=== PATIENT | male | born 1995 ===

== ENCOUNTER 2022-04-04 07:47 | Inpatient (IN) | payer MEDICAID, SELFPAY ==
[2022-04-04] VITALS (25 sets, daily range): BP systolic 52–175; BP diastolic 15–103; PULSE 77–138; RESP 16–27; TEMP 30–36.5; O2SAT 86–100; BMI 26.6
--- NOTE | 2022-04-04 | ECG_ITS ---
Test Reason : ST ELEVATION Blood Pressure : / mmHG Vent. Rate : 077 BPM Atrial Rate : 077 BPM P-R Int : 146 ms QRS Dur : 082 ms QT Int : 386 ms P-R-T Axes : 058 019 040 degrees QTc Int : 436 ms Normal sinus rhythm Septal infarct (cited on or before 04-APR-2022) Abnormal ECG When compared with ECG of 04-APR-2022 19:45, No significant change was found Referred By: Marta Barton Electronically Signed By:LUBNA HAMILTON
--- NOTE | ~2022-04-04 | CT_ITS ---
EXAMINATION: CT ANGIOGRAM OF THE CHEST WITH AND WITHOUT CONTRAST (CT PULMONARY ANGIOGRAM FOR PE) CLINICAL INFORMATION: Reason for Exam hypoxia/cardiogenic shock COMPARISON: Chest radiograph earlier today TECHNIQUE: Prior to contrast administration, noncontrast localization images were obtained. Subsequently, multidetector volumetric imaging was performed from the thoracic inlet to below the diaphragms following the administration of 75 mL Omnipaque 350 intravenous contrast. No contrast reaction reported Sagittal, coronal, and MIP oblique sagittal reformatted images were obtained on the CT workstation, uploaded to PACS, and reviewed. This CT examination was performed using dose optimization techniques as appropriate, variously including the following: *Automated exposure control *Adjustment of mA and/or kV according to patient size (this includes techniques or standardized protocols for targeted exams where dose is matched to indication/reason for exam; i.e. extremities or head) *Use of iterative reconstruction technique Total exam dose-length product 529 mGy-cm FINDINGS: QUALITY OF STUDY/CONTRAST BOLUS: Satisfactory. PULMONARY ARTERIES: 3 small pulmonary emboli are noted in the right lower lobe. THORACIC AORTA: No aneurysm or dissection. LUNG: There is near complete consolidation/collapse of the left lung with only a tiny amount of aerated lung in the upper lobe and a moderate amount in the lower lobe. There is shift of the mediastinum to the left associated with this volume loss. This is a new finding when compared to the chest radiograph from 1:09 PM today In the right lung, there is diffuse groundglass change with multiple focal rounded ill-defined opacities, the largest measuring about 1.5 cm (see right upper lobe 7:117). Right basilar atelectasis is present. PLEURA: No pleural effusion or pneumothorax. MEDIASTINUM: There is mild cardiac enlargement. ET tube present with its tip 1.4 cm above the anna marie. An NG tube has its tip in the stomach. No pericardial effusion. No hilar or mediastinal lymphadenopathy. No evidence of septal bowing or right heart strain. CHEST WALL/AXILLA: No axillary or internal mammary lymphadenopathy. OSSEOUS STRUCTURES: No acute or suspicious osseous abnormality. UPPER ABDOMEN: Unremarkable. No reflux of contrast into the hepatic veins to suggest elevated right heart pressures. CT/CT angio chest PE protocol IMPRESSION: 1. 3 small pulmonary emboli in the right lower lobe. No evidence of right heart failure. 2. Near complete consolidation/collapse of the left lung with shift of the mediastinum to the left. 3. Diffuse groundglass changes in the right lung with multiple focal ill-defined opacities. Findings are nonspecific, but most likely related to infectious etiology. VTE: positive. This critical result was discussed with LESLIE Barton at 7:40 PM on the evening of the exam and it was ascertained that the content and urgency of the report was understood at the time of direct communication.
--- NOTE | ~2022-04-04 | XR_ITS ---
EXAMINATION: XR CHEST CLINICAL INFORMATION: Check endotracheal tube placement COMPARISON: Previous chest x-ray from earlier the same day TECHNIQUE: Frontal view of the chest was obtained. FINDINGS: The cardiac and mediastinal contours are stable. There is an endotracheal tube with tip 3 cm above the anna marie. There is a nasogastric tube with tip projecting over the stomach. There may be bilateral perihilar airspace disease. The lungs are otherwise clear. There is no pleural effusion or pneumothorax. No acute bone abnormality. XR/XR chest 1V IMPRESSION: Satisfactory position of endotracheal and nasogastric tubes.
--- NOTE | ~2022-04-04 | XR_ITS ---
EXAMINATION: XR CHEST CLINICAL INFORMATION: Triple-lumen catheter COMPARISON: Chest radiograph earlier today at 1:09 PM TECHNIQUE: Frontal view of the chest was obtained. FINDINGS: Since the prior study there has been placement of a right IJ catheter with tip in the distal SVC. No pneumothorax. ET tube again noted 3.3 cm above the anna marie. NG tube with tip in stomach. Compared to the prior CT scan is probably been improvement in appearances with better aeration of the left lung. The right lung is clear. XR/XR chest 1V IMPRESSION: Right IJ catheter in good position with tip in SVC. Other findings as described above. No acute intrathoracic disease.
--- NOTE | ~2022-04-04 | CT_ITS ---
EXAMINATION: CT HEAD WITHOUT CONTRAST CLINICAL INFORMATION: Altered mental status COMPARISON: None TECHNIQUE: Imaging was performed from the skull base to vertex without intravenous administration of contrast. This CT examination was performed using dose optimization techniques as appropriate, variously including the following: *Automated exposure control *Adjustment of mA and/or kV according to patient size (this includes techniques or standardized protocols for targeted exams where dose is matched to indication/reason for exam; i.e. extremities or head) *Use of iterative reconstruction technique Total exam dose length product: 699 mGy-cm FINDINGS: Abnormal heterogeneous attenuation in the cerebellum primarily in the midline and in the left cerebellar hemisphere with effacement of the fourth ventricle, prepontine and CP angle cisterns and obstructive hydrocephalus with dilation of the third and lateral ventricles and effacement of sulci as well as the basilar cisterns. There is mild periventricular hypoattenuation about the atria/occipital horn suggesting mild transependymal flow of CSF. Small curvilinear high density focus in the ventral left aspect of the cerebellum on series 2 image 13, possibly a small amount of hemorrhage. Some downward herniation of the cerebellar tonsils through the foramen magnum that appears to efface the CSF space. No other intra or extra-axial fluid collection, hemorrhage, or mass. Pat-white matter differentiation appears maintained. No significant volume loss. No calvarial fracture or soft tissue abnormality. The mastoid air cells and visualized portions of the paranasal sinuses are well aerated. CT/CT head/brain wo IV con IMPRESSION: 1. Findings highly suspicious for infiltrative mass in the posterior fossa/cerebellum primarily in the midline and in the left cerebellar hemisphere with resultant effacement of the fourth ventricle, basilar cisterns, and obstructive hydrocephalus with mild transependymal CSF flow. Recommendation for emergent neurosurgical consultation. 2. Small curvilinear high density focus in the ventral left aspect of the cerebellum, possibly a small amount of hemorrhage. This critical result was discussed with Marat Briceño NP at 7:21 PM on 08/03/2021 and it was ascertained that the content and urgency of the report was understood at the time of direct communication.
--- NOTE | ~2022-04-04 | XR_ITS ---
EXAMINATION: XR CHEST CLINICAL INFORMATION: Endotracheal tube position. COMPARISON: None TECHNIQUE: Frontal view of the chest was obtained. FINDINGS: Support devices: Endotracheal tube is seen at the level the anna marie pointing into the right mainstem bronchus. No significant abnormality is noted involving the heart, lungs, mediastinum, bony thorax or soft tissues. XR/XR chest 1V IMPRESSION: 1. Endotracheal tube at the level the anna marie pointing into the right mainstem bronchus. Readjustment is recommended. 2. No acute cardiopulmonary process.
--- NOTE | 2022-04-04 07:56 | ED.OVERDOSE ---
HPI - Overdose General Chief Complaint: Overdose Stated Complaint: FOUND SEMI CONS IN CAR,NARCAN GIVEN W/GOOD RESULTS Source: EMS Mode of arrival: EMS Limitations: no limitations History of Present Illness HPI Narrative: This is a 26 years old male brought in by the ambulance after opioid overdose, he was found in the car obtunded he was given 6 mg of Narcan nasally he is awake and alert now complaint: accidental overdose Onset (ago): hour(s) (1) Timing confirmed by: other Context: Accidental Overdose: wanted to get high Treatments Prior to Arrival: other (narcan ) Related Data Home Medications Medication Instructions Recorded Confirmed No Known Home Meds 04/04/22 04/04/22 Allergies Allergy/AdvReac Type Severity Reaction Status Date / Time Unable to Assess Allergy Verified 04/04/22 08:00 Review of Systems Constitutional: Constitutional: Reports no additional constitutional complaints ENT: Reports system reviewed and no additional complaints, except as documented Cardiovascular: Cardiovascular: Reports no additional cardiovascular complaints Gastrointestinal: Gastrointestinal: Reports no additional gastrointestinal complaints Neurologic: Reports system reviewed and no additional complaints, except as documented [facility] Past Medical History [facility] Narrative: opiate abuse Social History Social History Household Members: Unknown / Unable to assess Housing: Unknown / Unable to assess Unable to assess alcohol history related to: Unable to respond Patient Tobacco Use Status: Refuse Tobacco use screen Use of substances other than those prescribed or required for medical reasons: Unable to respond Advance Directives: No Advance Directives Information Provided: No Physical Exam Vital Signs: Vital Signs: Last Vital Signs Temp 97.7 F 04/04/22 15:30 Pulse 138 H 04/04/22 15:30 Resp 18 04/04/22 15:30 BP 166/103 H 04/04/22 15:30 Pulse Ox 96 04/04/22 15:30 O2 Del Method 04/04/22 15:30 O2 Flow Rate 40 04/04/22 13:54 FiO2 40 04/04/22 15:30 BMI result Body Mass Index 26.6 Const: General: cooperative HEENT: Head: Yes normal to inspection General nose exam: Normal external nose present Mouth: Normal oral and palatal mucosa present Neck: Neck: Yes normal visual inspection and Yes full ROM Chest: Chest palpation & inspection: normal inspection of the chest Resp: Effort & Inspection: normal respiratory effort Auscultation: clear to auscultation bilaterally Cardio: Jugular venous distension: no JVD Rate: regular rate GI: Inspection: Yes normal to inspection Palpation (GI): Soft to palpation, not firm, nontender and no guarding Auscultation: normal bowel sounds Skin: General skin exam: no rashes or lesions noted, elasticity normal and turgor normal Course Reevaluation(s) Reevaluation #1: Patient became more obtunded, but not apneic, his respiration rate was normal is sat was normal. Suction mouth we forund on secretion and multiple bags of drugs, because unbale to protect airway and obtunded decision to intubate,He was intubated with RSI ketamine/sux Time: 12:51 Reevaluation #2: Dr. Camarillo is at bedside now,hemodinamic OK Medications Administered Generic Name Dose Route Start Last Admin Trade Name Freq PRN Reason Stop Dose Admin Famotidine 20 mg 04/04/22 13:00 04/04/22 13:20 Famotidine/Pf 20 Mg/2 Ml Vial IVPUSH 20 mg BID GOLDY Administration Dextrose/Lactated Ringer's 1,000 mls @ 100 mls/hr 04/04/22 13:00 04/04/22 13:48 D5lr IVCONT 100 mls/hr .Q10H GOLDY Administration Discontinued Medications Generic Name Dose Route Start Last Admin Trade Name Freq PRN Reason Stop Dose Admin Fentanyl 100 mcg 04/04/22 12:00 04/04/22 12:05 Fentanyl Citrate/Pf 100 Mcg/2 Ml Vial IVPUSH 04/04/22 12:01 100 mcg ONCE ONE Administration Protocol Sodium Chloride 1,000 mls @ 999 mls/hr 04/04/22 10:15 04/04/22 12:52 Ns IVCONT 04/04/22 11:15 Infused .Q1H1M GOLDY Infusion Ketamine HCl 100 mg 04/04/22 11:49 04/04/22 11:50 Ketamine Hcl/Ns 100 Mg/10 Ml Syringe IVPUSH 04/04/22 11:50 100 mg STAT STA Administration Lidocaine HCl 5 ml 04/04/22 11:04 04/04/22 11:35 Lidocaine Hcl 1 % Mpf 5 Ml Vial INFILTRATI 04/04/22 11:05 5 ml ONCE ONE Administration Ondansetron HCl 4 mg 04/04/22 08:00 04/04/22 08:31 Ondansetron Odt 4 Mg Tab.Rapdis TRANSLINGU 04/04/22 08:01 4 mg ONCE ONE Administration Procedures EJ/Peripheral Line Arm R: Time Out Performed: Yes Skin Cleansed in Sterile Fashion: Yes IV Secured and Dressing Applied: Yes Patient Tolerated Procedure: well Additional Comments: under US cannulated rt brachial vein Intubation Time out performed: Yes sedative: Ketamine paralytic: Succinylcholine Laryngoscope: other (video laryngoscopy) ET Tube Size: 7.5 ET Tube Uncuffed: Yes Tube Secured Depth (cm): 33 Tube Secured Location: teeth Tube Placement Confirmation: equal breath sounds bilaterally Patient Tolerated Procedure: well Intubation Complications: none Medical Decision Making Lab Data MDM Lab Attestation statement: I reviewed the patient's lab results. Result Diagrams: 04/04/22 10:49 04/04/22 12:55 Labs: Lab Results 04/04/22 04/04/22 04/04/22 Range/Units 10:49 11:29 11:33 WBC 20.9 H (4.8-10.8) X10*3/uL RBC 5.69 (4.60-5.80) X10*6/uL Hgb 18.2 H (14.0-18.0) g/dl Hct 51.9 (42.0-52.0) % MCV 91.2 (80.0-98.0) fL MCH 32.0 (27.0-33.0) pg MCHC 35.1 (31.0-36.0) g/dl RDW 11.9 (11.0-16.0) % Plt Count 216 (160-400) X10*3/uL MPV 10.7 (9.4-12.4) fL Immature Gran % (Auto) 0.6 H (0.0-0.4) % Neut % (Auto) 90.7 H (45-73) % Lymph % (Auto) 4.6 L (20-40) % [place] % (Auto) 4.0 (2-11) % Eos % (Auto) 0.0 (0-4) % Baso % (Auto) 0.1 (0-2) % Lymph # (Auto) 1.0 L (1.2-4.9) X10*3/uL [place] # (Auto) 0.8 (0.1-1.2) X10*3/uL Eos # (Auto) 0.0 (0.0-0.4) X10*3/uL Baso # (Auto) 0.0 (0.0-0.2) X10*3/uL Abs Immat Gran (auto) 0.13 H (0.00-0.03) X10*3/uL Absolute Neuts (auto) 18.9 H (2.0-8.3) x10*3/uL Absolute Nucleated RBC 0.000 (0.0-0.012) X10*3/uL Nucleated RBC % (auto) 0.0 (0.0-0.2) /100WBC Smear Tech's Comments VERIFIED VBG pH 7.41 (7.32-7.43) VBG pCO2 32 mmHg VBG pO2 63 mmHg VBG HCO3 20 L (22-26) mmol/L VBG O2 Saturation 94.0 % VBG Base Excess -2.6 mmol/L POC Glucose 124 H (60-115) mg/dL Independent Interpretation I performed an independent interpretation of an: Plain X-Ray Interpretation: CLINICAL INFORMATION: Check endotracheal tube placement COMPARISON: Previous chest x-ray from earlier the same day TECHNIQUE: Frontal view of the chest was obtained. FINDINGS: The cardiac and mediastinal contours are stable. There is an endotracheal tube with tip 3 cm above the anna marie. There is a nasogastric tube with tip projecting over the stomach. There may be bilateral perihilar airspace disease. The lungs are otherwise clear. There is no pleural effusion or pneumothorax. No acute bone abnormality. XR/XR chest 1V IMPRESSION: Satisfactory position of endotracheal and nasogastric tubes. ? Dictated By: Birgit Peter MD Independent Historian Clinical information obtained from an independent historian. History obtained from or confirmed by: EMS Critical Care Time Critical Care Time Critical Care Time: Yes Total Critical Care Time: 60 Attestation: taking care of the pt ,multiple reexamination Discharge Plan Discharge Clinical Impression: Drug overdose, Respiratory failure Patient Disposition: Admitted As Inpatient
--- NOTE | 2022-04-04 08:12 | PC.NURSE ---
pt alert to self, not able to respond appropriately to triage questions. pt changed over and belongings searched by security. small plastic bag with white substance found on his person and fifty-two dollars in vaugh[place]. pt was given 8 mg narcan by ems. belongings inventory done by supervisor powdered metal, belongings secured in locker 7 by security personnel.
[2022-04-04] MEDS: Ondansetron ODT 4 MG TAB.RAPDIS TRANSLINGU (08:31)
--- NOTE | 2022-04-04 09:51 | HO.SUDE ---
Attempted to meet with pt to complete SUDE. Pt unable to have meaningful conversation due to somnolence. Pt was able to tell me that he used 2 bags, IN, this morning and has had overdoses in the past. Pt declined ATS at this time. Will follow up when more awake.
[2022-04-04] MEDS: 0.9 % Sodium Chloride 1,000 ML 999 ML IVCONT (10:51)
[2022-04-04 10:58] LABS: Basophils Percent Auto 0.1 % (0-2); Hematocrit 51.9 % (42.0-52.0); Hemoglobin 18.2 g/dl (14.0-18.0); Imm Gran Abs Auto 0.13 X10*3/uL (0.00-0.03); Imm Gran Pct Auto 0.6 % (0.0-0.4); Lymphocytes Percent Auto 4.6 % (20-40); MANUAL DIFF FLAG SCAN; Mean Corpuscular Volume 91.2 fL (80.0-98.0); Mean Platelet Volume 10.7 fL (9.4-12.4); Monocytes Absolute Auto 0.8 X10*3/uL (0.1-1.2); Neutrophils Absolute Auto 18.9 x10*3/uL (2.0-8.3); Neutrophils Percent Auto 90.7 % (45-73); Platelet Count 216 X10*3/uL (160-400); Red Blood Count 5.69 X10*6/uL (4.60-5.80); Red Cell Distribution Width 11.9 % (11.0-16.0); SCAN SMEAR FLAG 1; White Blood Count 20.9 X10*3/uL (4.8-10.8)
[2022-04-04 10:59] LABS: Mean Corpuscular HGB Conc 35.1 g/dl (31.0-36.0)
[2022-04-04 11:32] LABS: Glucose, Whole Blood 124 mg/dL (60-115)
--- NOTE | 2022-04-04 11:32 | ECG_ITS ---
Test Reason : OVERDOSE Blood Pressure : / mmHG Vent. Rate : 111 BPM Atrial Rate : 111 BPM P-R Int : 136 ms QRS Dur : 070 ms QT Int : 302 ms P-R-T Axes : 049 013 028 degrees QTc Int : 410 ms Sinus tachycardia Septal infarct , age undetermined Abnormal ECG No previous ECGs available Referred By: Miles Perez Electronically Signed By:LUBNA HAMILTON
[2022-04-04] MEDS: Lidocaine HCl 1 % MPF 5 ML VIAL INFILTRATI (11:35)
[2022-04-04 11:38] LABS: Venous Blood Gas Refer to POC result
[2022-04-04 11:39] LABS: SLIDE REVIEW VERIFIED
[2022-04-04 11:39] LABS: VBG Base Excess -2.6 mmol/L; VBG HCO3 20 mmol/L (22-26); VBG pCO2 32 mmHg; VBG pH 7.41 (7.32-7.43); VBG pO2 63 mmHg
[2022-04-04] MEDS: Ketamine HCl/NS 100 MG/10 ML SYRINGE IVPUSH (11:50)
[2022-04-04] MEDS: fentaNYL citrate/PF 100 MCG/2 ML VIAL IVPUSH (12:05)
--- NOTE | 2022-04-04 12:51 | PM.CCHP ---
History of Present Illness Date of Service: 04/04/22 Attending physician on admission: Mai Hensley Chief Complaint: Altered mental mental status 26-year-old male found unresponsive in his car given 6 mg of Narcan in the field and he did awaken briefly brought to the emergency room where it note they noticed that he had stertorous breathing and upon oral suctioning they began to retrieve backs of drugs from his mouth and pharynx and as he lost consciousness and and clearly was unable to protect his airway and because he was obstructed intubation was performed with a sore an edematous and slightly bloody hypopharynx and glottis and or able to retrieve some additional drugs from his pharynx and then he was intubated without complication currently sedated and and intubated Machado catheter is in place with urine output and he is in sinus rhythm with no acute changes on his EKG with good bilateral carotid upstrokes no neck vein distension quiet precordium no gallops no rubs benign abdomen no organomegaly bedside echo demonstrating normal anatomy globally normal systolic wall motion of his left ventricle 55% ejection fraction and no primary valve or pericardial disease upon arriving in the ICU, we noted unresposive with marked bilat. pupillary dilatation and unresposive to light 1/2 hour later called to his room because nursing noted drop in bp from 170 to 50 systolic but symmetric bps and equal carotids, so hopefully no dissection. Off propofol, still unresponsive, with no light reflex but dilated and equal pupils, and no gag reflex, no spont. resp. and no corneal reflexes but he had ne hyperacute ST elev. V1-6 and by echom a new akinesis and his O2 sats were dropping to 83% and bp 50-60 syst I chose vasopressin adilia support bp and only achieved 65 syst on 0.08 units/min and started IV nitro for presumptive LAD spasm, adilia no avail Next IV nicardipine to no avail Repeat echo showed new RV dysfx. with apex preserved and free wall dilated and motionless and bp still 65 and O2 sat 83%. Repeat neuro unchanged and ophthalmic exam with sharp disc and no exudate or hemorrhage At this point I feared primary [employer] elevated ICP and ? Takotsubo, but no clinical pulm. edema-or possible PE with RV failure and threatened infarct Too unstable for CT scan-clinically, best bet was for tenecteplase 40mg IV and 1/2 hr. 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 and CTA chest with residual thrombus on the right and extensive left lung atelectasis, presumably aspiration WE started 3% NS and called for neuro ICU transfer Review of Systems Review of Systems: Yes Unobtainable due to mental condition [facility] Social History Social History Household Members: Unknown / Unable to assess Housing: Unknown / Unable to assess Unable to assess alcohol history related to: Unable to respond Patient Tobacco Use Status: Refuse Tobacco use screen Use of substances other than those prescribed or required for medical reasons: Unable to respond Advance Directives: No Advance Directives Information Provided: No Meds Allergies Allergy/AdvReac Type Severity Reaction Status Date / Time Unable to Assess Allergy Verified 04/04/22 08:00 Active Medications: Current Medications Propofol (Diprivan) 1,000 mg in 100 mls @ 0 mls/hr IVCONT .Q0M GOLDY; Protocol Fentanyl (Sublimaze/Ns) 1,000 mcg in 100 mls @ 0 mls/hr IVCONT .Q0M GOLDY; Protocol Naloxone HCl (Naloxone Hcl 0.4 Mg/Ml Vial) 0.2 mg IVPUSH Q2M PRN PRN Reason: Excessive sedation or RR < 8 Home Medications Medication Instructions Recorded Confirmed Last Taken Type No Known Home Meds 04/04/22 04/04/22 Unknown History Physical Exam Vital Signs: Vital Signs: Last Vital Signs Pulse 111 H 04/04/22 07:56 Resp 27 H 04/04/22 07:56 BP 137/61 04/04/22 07:56 Pulse Ox 98 04/04/22 07:56 O2 Del Method 04/04/22 07:56 FiO2 40 04/04/22 12:13 BMI result Body Mass Index 26.6 refer to history Results Labs CBC and Chem 7: 04/04/22 10:49 04/04/22 12:55 Labs: Laboratory Results - last 24 hr 04/04/22 04/04/22 04/04/22 10:49 11:29 11:33 MCV 91.2 MCH 32.0 MCHC 35.1 RDW 11.9 Plt Count 216 MPV 10.7 Immature Gran % (Auto) 0.6 H Neut % (Auto) 90.7 H Lymph % (Auto) 4.6 L [place] % (Auto) 4.0 Eos % (Auto) 0.0 Baso % (Auto) 0.1 Lymph # (Auto) 1.0 L [place] # (Auto) 0.8 Eos # (Auto) 0.0 Baso # (Auto) 0.0 Abs Immat Gran (auto) 0.13 H Absolute Neuts (auto) 18.9 H Absolute Nucleated RBC 0.000 Nucleated RBC % (auto) 0.0 Smear Tech's Comments VERIFIED VBG pH 7.41 VBG pCO2 32 VBG pO2 63 VBG HCO3 20 L VBG O2 Saturation 94.0 VBG Base Excess -2.6 POC Glucose 124 H Assessment and Plan (1) Cocaine abuse: Status: Acute (2) Fentanyl adverse reaction: Status: Acute (3) Altered mental state: Status: Acute (4) Acute pulmonary embolism with acute cor pulmonale: Status: Acute (5) Hypotension: Status: Acute (6) Acute respiratory failure with hypoxia: Status: Acute (7) Elevated intracranial pressure: Status: Acute Plan plan was for either mannitol or 3% NS and apply for transfer to neuro ICU and for bp support on vasopressin Time Spent With Patient Time: Total time managing care of this patient today 120____ minutes.
[2022-04-04 13:04] LABS: Appearance Urine Clear; Color Urine Yellow; Glucose Urine UA Negative (Negative); Leukocyte Esterase Urine Negative (Negative); Nitrite Urine Negative (Negative); PH 5.5 (5.0-9.0); Specific Gravity - Urine 1.015 (1.005-1.025); UMIC TRIGGER UACC YES; Urine Blood Large (3+) (Negative); Urine Ketones Negative (Negative); Urine Protein 100 (2+) mg/dL (Neg-Trace)
[2022-04-04 13:14] LABS: Amphetamine Screen Urine Not Detected (Not Detect); Barbiturates, Urine Not Detected (Not Detect); Benzodiazepines Screen Urine POSITIVE (Not Detect); Cannabinoid Screen Urine POSITIVE (Not Detect); Cocaine Screen Urine POSITIVE (Not Detect); Fentanyl, urine POSITIVE (Not Detect); Opiate Screen Urine Not Detected (Not Detect); Phencyclidine Screen Urine Not Detected (Not Detect)
--- NOTE | 2022-04-04 13:18 | PHA.MEDREC ---
Pharmacy Consult ? Medication Reconciliation Pharmacy has completed the medication reconciliation. Patient intubated. No listed family. No medications on claim history. Fatou Majano, PharmD
[2022-04-04 13:19] LABS: Bacteria Urine None Seen (None Seen); Granular Casts Urine Present; RBC Urine 0-2 /HPF (0-2); Squamous Epithelial Cell Urine 0-2 /HPF (0-2); WBC Urine 0-5 /HPF (0-5)
[2022-04-04 13:20] LABS: Alanine Aminotransferase 62 U/L (0-40); Albumin Level 4.8 g/dL (3.5-5.0); Alkaline Phosphatase 83 U/L (39-117); Anion Gap 16 (12-20); Aspartate Amino Transferase 180 U/L (5-37); Bilirubin Total 0.5 mg/dL (0.0-1.0); Blood Urea Nitrogen 17 mg/dL (9-16); Calcium 8.8 mg/dL (8.4-10.2); Carbon Dioxide 23 mmol/L (22-29); Chloride 109 mmol/L (96-108); Creatinine Clr Calc Pharmacy 54.7; Estimated Glomerular Filt Rate 40; Glucose Random 126 mg/dL (60-115); Potassium 5.5 mmol/L (3.3-5.1); Sodium 142 mmol/L (135-145); Total Protein 7.4 g/dL (6.5-8.0)
[2022-04-04] MEDS: Famotidine/PF 20 MG/2 ML VIAL IVPUSH ×2 (13:20→20:06)
[2022-04-04] MEDS: Dextrose 5 % and Lactated Ring 1,000 ML 100 ML IVCONT ×2 (13:48→22:24)
[2022-04-04 14:20] LABS: COVID-19 Test Negative (Negative); IDNOW Serial# 16C4AD1C
--- NOTE | 2022-04-04 16:06 | ECG_ITS ---
Test Reason : RHYTHM CHECK Blood Pressure : / mmHG Vent. Rate : 092 BPM Atrial Rate : 092 BPM P-R Int : 124 ms QRS Dur : 082 ms QT Int : 354 ms P-R-T Axes : 051 026 041 degrees QTc Int : 437 ms Normal sinus rhythm Normal ECG When compared with ECG of 04-APR-2022 11:32, No significant changes seen Referred By: Mai Hensley Electronically Signed By:LUBNA HAMILTON
--- NOTE | 2022-04-04 16:08 | ECG_ITS ---
Test Reason : RHYTHM CHECK Blood Pressure : / mmHG Vent. Rate : 090 BPM Atrial Rate : 090 BPM P-R Int : 128 ms QRS Dur : 082 ms QT Int : 348 ms P-R-T Axes : 049 026 039 degrees QTc Int : 425 ms Normal sinus rhythm Normal ECG When compared with ECG of 04-APR-2022 16:26, No significant change was found Referred By: Marta Barton Electronically Signed By:LUBNA HAMILTON
[2022-04-04] MEDS: Nitroglycerin/D5W 100 MG/250 ML INFUS..BTL IVCONT (16:16)
[2022-04-04] MEDS: Aspirin 81 MG TAB.CHEW 324 MG OG-TUBE (16:18)
--- NOTE | 2022-04-04 16:24 | ECG_ITS ---
Test Reason : RHYTHM CHECK Blood Pressure : / mmHG Vent. Rate : 098 BPM Atrial Rate : 098 BPM P-R Int : 110 ms QRS Dur : 078 ms QT Int : 346 ms P-R-T Axes : 057 050 059 degrees QTc Int : 441 ms Sinus rhythm with short UT Otherwise normal ECG No previous ECGs available Referred By: Marta Barton Electronically Signed By:LUBNA HAMILTON
--- NOTE | 2022-04-04 16:36 | ECG_ITS ---
Test Reason : RHYTHM CHECK Blood Pressure : / mmHG Vent. Rate : 089 BPM Atrial Rate : 089 BPM P-R Int : 126 ms QRS Dur : 082 ms QT Int : 358 ms P-R-T Axes : 054 021 039 degrees QTc Int : 435 ms Normal sinus rhythm Normal ECG When compared with ECG of 04-APR-2022 16:36, No significant change was found Referred By: Marta Barton Electronically Signed By:LUBNA HAMILTON
[2022-04-04] MEDS: niCARdipine HCL 25 MG in 0.9 % Sodium Chloride 250 ML 26 MG IVCONT (16:41)
--- NOTE | 2022-04-04 16:46 | ECG_ITS ---
Test Reason : ST ELEVATION Blood Pressure : / mmHG Vent. Rate : 077 BPM Atrial Rate : 077 BPM P-R Int : 144 ms QRS Dur : 084 ms QT Int : 384 ms P-R-T Axes : 056 016 037 degrees QTc Int : 434 ms Normal sinus rhythm Septal infarct , age undetermined Abnormal ECG When compared with ECG of 04-APR-2022 16:08, No significant changes seen Referred By: Marta Barton Electronically Signed By:LUBNA HAMILTON
[2022-04-04] MEDS: Tenecteplase 50 MG KIT 40 MG IVPUSH (17:11)
--- NOTE | 2022-04-04 17:36 | ECG_ITS ---
Test Reason : RHYTHM CHECK Blood Pressure : / mmHG Vent. Rate : 087 BPM Atrial Rate : 087 BPM P-R Int : 126 ms QRS Dur : 076 ms QT Int : 356 ms P-R-T Axes : 050 012 046 degrees QTc Int : 428 ms Normal sinus rhythm Possible Left atrial enlargement Septal infarct , age undetermined Abnormal ECG When compared with ECG of 04-APR-2022 16:46, septal changes noted Referred By: Marta Barton Electronically Signed By:LUBNA HAMILTON
--- NOTE | 2022-04-04 18:13 | ECG_ITS ---
Test Reason : RHYTHM CHECK Blood Pressure : / mmHG Vent. Rate : 086 BPM Atrial Rate : 086 BPM P-R Int : 146 ms QRS Dur : 078 ms QT Int : 360 ms P-R-T Axes : 040 040 031 degrees QTc Int : 430 ms Normal sinus rhythm Septal infarct (cited on or before 04-APR-2022) Abnormal ECG When compared with ECG of 04-APR-2022 17:36, No significant change was found Referred By: Marta Barton Electronically Signed By:LUBNA HAMILTON
[2022-04-04] MEDS: iohexoL 350 MG/ML 100 ML INFUS..BTL IV (19:03)
--- NOTE | 2022-04-04 20:00 | PC.NURSE ---
PATIENT ARRIVED ON UNIT, REPORT GIVEN BY ED RN. PROPOFOL GTT RUNNING. PATIENT SBP 160-170'S, HR 140'S, PUPILS 4-5MM - SLUGGISH, O2 98%. PATIENT QUICKLY DESATED, HR 90'S, BP 61/15, 02 88%, PUPILS 7-8 MM NONE REACTIVE TO LIGHT. MD NOTIFIED AND BROUGHT BEDSIDE. CRASH CART BROUGHT INTO ROOM, DEFIBRILLATION PADS PLACED ON PATIENT, JOEY BACKBOARD PLACED UNDER PATIENT PRECAUTION. MULTIPLE EKGS PREFORMED PER MD, SEE PATIENT CHART. VASOPRESSIN GTT STARTED PER MD, TITRATED PER MD ORDER. SEE EMAR. NITRO GTT STARTED PER MD, TITRATED PER MD ORDER. SEE EMAR. CARDENE GTT STARTED AND TITRATED PER MD ORDER. SEE EMAR. D5LR TITRATED PER MD ORDER, SEE EMAR. PROPOFOL GTT PAUSED PER MD ORDER, SEE EMAR. ASPIRIN 324 MG CHEWABLE GIVEN, CRUSHED, THROUGH OG TUBE. SEE EMAR. TNKASE GIVEN SINGLE DOSE, BY MD. SEE EMAR. PATIENT BROUGHT TO ER CT FOR A HEAD AND CHEST CT BY RN X2 AND RT, PENDING RESULTS.
[2022-04-04 21:42] LABS: VBG Base Excess -2.5 mmol/L; VBG HCO3 18 mmol/L (22-26); VBG pCO2 24 mmHg; VBG pH 7.49 (7.32-7.43); VBG pO2 111 mmHg
[2022-04-04 22:07] LABS: Anion Gap 14 (12-20); Blood Urea Nitrogen 20 mg/dL (9-16); Calcium 8.9 mg/dL (8.4-10.2); Carbon Dioxide 20 mmol/L (22-29); Chloride 107 mmol/L (96-108); Creatinine Clr Calc Pharmacy 58.8; Estimated Glomerular Filt Rate 43; Glucose Random 261 mg/dL (60-115); Potassium 4.8 mmol/L (3.3-5.1); Sodium 136 mmol/L (135-145)
[2022-04-04 22:12] LABS: B Type Natriuretic Peptide 51 pg/mL (<100)
--- NOTE | 2022-04-04 22:13 | P.DS_ITS ---
DS: Providers Provider Date of Service: 04/04/22 Date of admission: 04/04/22 12:53 Date of discharge: 04/04/22 Primary care physician: Unknown Physician Admitting clinician: Mai Hensley Attending physician on admission: Mai Hensley Consults: 04/04/22 08:00 Consult to Care Team Stat Comment: Reason for consultation: overdose Attending physician on discharge: Mai Hensley Discharging clinician: Marta Barton DS: Transfer Hospital Acceptance Reason for Transfer: C Name of Facility: Cerebellar mass with obstructive hydrocephalus Accepting Provider: Dr Seaman ([facility] [place]) DS: Diagnosis Discharge Diagnosis (1) Cocaine abuse: Status: Acute (2) Fentanyl adverse reaction: Status: Acute (3) Altered mental state: Status: Acute (4) Acute pulmonary embolism with acute cor pulmonale: Status: Acute (5) Hypotension: Status: Acute (6) Acute respiratory failure with hypoxia: Status: Acute (7) Elevated intracranial pressure: Status: Acute DS: Summary Hospital Course Hospital Course: 26-year-old male found unresponsive in his car given 6 mg of Narcan in the field and he did awaken briefly brought to the emergency room where it note they noticed that he had stertorous breathing and upon oral suctioning they began to retrieve backs of drugs from his mouth and pharynx and as he lost consciousness and and clearly was unable to protect his airway and because he was obstructed intubation was performed with a sore an edematous and slightly bloody hypopharynx and glottis and or able to retrieve some additional drugs from his pharynx and then he was intubated without complication currently sedated and and intubated Machado catheter is in place with urine output and he is in sinus rhythm with no acute changes on his EKG with good bilateral carotid upstrokes no neck vein distension quiet precordium no gallops no rubs benign abdomen no organomegaly bedside echo demonstrating normal anatomy globally normal systolic wall motion of his left ventricle 55% ejection fraction and no primary valve or pericardial disease Upon arriving in the ICU, we noted unresposive with marked bilat. pupillary dilatation and unresposive to light 1/[address] Olson called to his room because nursing noted drop in bp from 170 to 50 systolic but symmetric bps and equal carotids, so hopefully no dissection. Off propofol, still unresponsive, with no light reflex but dilated and equal pupils, and no gag reflex, no spont. resp. and no corneal reflexes but he had new hyperacute ST elev. V1-6 and by echom a new akinesis and his O2 sats were dropping to 83% and bp 50-[address] hensley chose vasopressin to support bp and only achieved 65 syst on 0.08 units/min and started IV nitro for presumptive LAD spasm, adilia no avail Next IV nicardipine to no avail Repeat echo showed new RV dysfx. with apex preserved and free wall dilated and motionless and bp still 65 and O2 sat 83%. Repeat neuro unchanged and ophthalmic exam with sharp disc and no exudate or hemorrhage. ? DIRECTOR MISSION? elevated ICP and ? Takotsubo, but no clinical pulm. edema-or possible? PE with RV failure and threatened infarct Initially, he was unstable for CT scan-clinically, Dr Hensley decided to give? tenecteplase 40mg IV and 1/2 hr. later ETCO2 increased from 18-22 and O2 sats inproved to 100% and [id number] head showed cerebellar mass with obstructive hydrocephalus and CTA of chest with residual thrombus on the right and extensive left lung atelectasis, presumably aspiration started 3% NS and called for neuro ICU transfer I personally called 6 hospitals in the area only [facility]. Patient was accepted by Dr Seaman (Critical care neuro) who recommended mannitol over 3% saline. Stopped 3 % saline and ordered mannitol. Status at Discharge Cognitive/behavioral status at discharge: Intubated Time Spent with Patient Time attestation: Total time managing care of this patient today ____ minutes. Discharge coordination time: Greater than 30 minutes Specific discharge activities: Attempted to call 6 hospitals for ICU bed. Patient in critical condition Quality: Safe Use of Opioids Does Pt have an Active Cancer Diagnosis on the Problem List?: No Quality: Stroke Does the patient have a stroke diagnosis?: No Physical Exam Vital Signs: Vital Signs: Last Vital Signs Temp 95.4 F L 04/04/22 22:00 Pulse 78 04/04/22 22:00 Resp 16 04/04/22 22:00 BP 111/69 04/04/22 22:00 Pulse Ox 96 04/04/22 22:00 O2 Del Method 04/04/22 22:00 O2 Flow Rate 40 04/04/22 13:54 FiO2 70 04/04/22 22:00 BMI result Body Mass Index 26.6 ?General:? Patient intubated. ?HEENT:? Head is normocephalic, atraumatic, Pupils equal, dilated, non reactive to light. ? Buccal mucosa is dry, Neck is supple ?Cardiac: Sinus? Clear S1-S2, no murmurs rubs or gallops. ?Pulmonary:?Left diminished, Right CTA. on AC settings 16/500/3/70% satting 96% ?Abdomen:? ?Abdomen soft, non-tender, non-distended. Normal bowel sounds ?Neurologic:? Withdraws to pain on lower extremities appropiately, no response on upper extremity. No cornea reflex, no gag reflex. ?Skin:? Intact, no lesions, edema, erythema, clubbing or cyanosis.? No ulcers. Vascular:? 2+ pulses upper and lower extremities distally.? DS: Data Data Completed and Pending Labs on day of discharge: Laboratory Results - last 24 hr 04/04/22 04/04/22 04/04/22 10:49 11:29 11:33 WBC 20.9 H RBC 5.69 Hgb 18.2 H Hct 51.9 MCV 91.2 MCH 32.0 MCHC 35.1 RDW 11.9 Plt Count 216 MPV 10.7 Immature Gran % (Auto) 0.6 H Neut % (Auto) 90.7 H Lymph % (Auto) 4.6 L Robertson % (Auto) 4.0 Eos % (Auto) 0.0 Baso % (Auto) 0.1 Lymph # (Auto) 1.0 L Robertson # (Auto) 0.8 Eos # (Auto) 0.0 Baso # (Auto) 0.0 Abs Immat Gran (auto) 0.13 H Absolute Neuts (auto) 18.9 H Absolute Nucleated RBC 0.000 Nucleated RBC % (auto) 0.0 Smear Tech's Comments VERIFIED VBG pH 7.41 VBG pCO2 32 VBG pO2 63 VBG HCO3 20 L VBG O2 Saturation 94.0 VBG Base Excess -2.6 Sodium Potassium Chloride Carbon Dioxide Anion Gap BUN Creatinine Estim Creat Clear Calc Estimated GFR POC Glucose 124 H Random Glucose Calcium Total Bilirubin AST ALT Alkaline Phosphatase B-Natriuretic Peptide Total Protein Albumin Urine Color Urine Appearance Urine pH Ur Specific Sterling Urine Protein Urine Glucose (UA) Urine Ketones Urine Blood Urine Nitrite Ur Leukocyte Esterase Urine RBC Urine WBC Ur Squamous Epith Cells Urine Bacteria Hyaline Casts Granular Casts Urine Opiates Screen Urine Fentanyl Screen Ur Barbiturates Screen Ur Phencyclidine Scrn Ur Amphetamines Screen U Benzodiazepines Scrn Urine Cocaine Screen U Marijuana (THC) Screen COVID-19 (MARYBETH) COVID-19 [facility] Com 04/04/22 04/04/22 04/04/22 12:55 12:55 12:55 WBC RBC Hgb Hct MCV MCH MCHC RDW Plt Count MPV Immature Gran % (Auto) Neut % (Auto) Lymph % (Auto) Robertson % (Auto) Eos % (Auto) Baso % (Auto) Lymph # (Auto) Robertson # (Auto) Eos # (Auto) Baso # (Auto) Abs Immat Gran (auto) Absolute Neuts (auto) Absolute Nucleated RBC Nucleated RBC % (auto) Smear Tech's Comments VBG pH VBG pCO2 VBG pO2 VBG HCO3 VBG O2 Saturation VBG Base Excess Sodium 142 Potassium 5.5 H Chloride 109 H Carbon Dioxide 23 Anion Gap 16 BUN 17 H Creatinine 2.01 H Estim Creat Clear Calc 54.7 Estimated GFR 40 POC Glucose Random Glucose 126 H Calcium 8.8 Total Bilirubin 0.5 AST 180 H ALT 62 H Alkaline Phosphatase 83 B-Natriuretic Peptide Total Protein 7.4 Albumin 4.8 Urine Color Yellow Urine Appearance Clear Urine pH 5.5 Ur Specific Sterling 1.015 Urine Protein 100 (2+) H Urine Glucose (UA) Negative Urine Ketones Negative Urine Blood Large (3+) H Urine Nitrite Negative Ur Leukocyte Esterase Negative Urine RBC 0-2 Urine WBC 0-5 Ur Squamous Epith Cells 0-2 Urine Bacteria None Seen Hyaline Casts 3-5 Granular Casts Present Urine Opiates Screen Not Detected Urine Fentanyl Screen POSITIVE H Ur Barbiturates Screen Not Detected Ur Phencyclidine Scrn Not Detected Ur Amphetamines Screen Not Detected U Benzodiazepines Scrn POSITIVE H Urine Cocaine Screen POSITIVE H U Marijuana (THC) Screen POSITIVE H COVID-19 (MARYBETH) COVID-19 Clin Com 04/04/22 04/04/22 04/04/22 13:59 21:35 21:38 WBC RBC Hgb Hct MCV MCH MCHC RDW Plt Count MPV Immature Gran % (Auto) Neut % (Auto) Lymph % (Auto) Robertson % (Auto) Eos % (Auto) Baso % (Auto) Lymph # (Auto) Robertson # (Auto) Eos # (Auto) Baso # (Auto) Abs Immat Gran (auto) Absolute Neuts (auto) Absolute Nucleated RBC Nucleated RBC % (auto) Smear Tech's Comments VBG pH 7.49 H VBG pCO2 24 VBG pO2 111 VBG HCO3 18 L VBG O2 Saturation 100.0 VBG Base Excess -2.5 Sodium 136 Potassium 4.8 Chloride 107 Carbon Dioxide 20 L Anion Gap 14 BUN 20 H Creatinine 1.87 H Estim Creat Clear Calc 58.8 Estimated GFR 43 POC Glucose Random Glucose 261 H Calcium 8.9 Total Bilirubin AST ALT Alkaline Phosphatase B-Natriuretic Peptide Total Protein Albumin Urine Color Urine Appearance Urine pH Ur Specific Sterling Urine Protein Urine Glucose (UA) Urine Ketones Urine Blood Urine Nitrite Ur Leukocyte Esterase Urine RBC Urine WBC Ur Squamous Epith Cells Urine Bacteria Hyaline Casts Granular Casts Urine Opiates Screen Urine Fentanyl Screen Ur Barbiturates Screen Ur Phencyclidine Scrn Ur Amphetamines Screen U Benzodiazepines Scrn Urine Cocaine Screen U Marijuana (THC) Screen COVID-19 (MARYBETH) Negative COVID-19 Clin Com See Note 04/04/22 21:38 WBC RBC Hgb Hct MCV MCH MCHC RDW Plt Count MPV Immature Gran % (Auto) Neut % (Auto) Lymph % (Auto) Robertson % (Auto) Eos % (Auto) Baso % (Auto) Lymph # (Auto) Robertson # (Auto) Eos # (Auto) Baso # (Auto) Abs Immat Gran (auto) Absolute Neuts (auto) Absolute Nucleated RBC Nucleated RBC % (auto) Smear Tech's Comments VBG pH VBG pCO2 VBG pO2 VBG HCO3 VBG O2 Saturation VBG Base Excess Sodium Potassium Chloride Carbon Dioxide Anion Gap BUN Creatinine Estim Creat Clear Calc Estimated GFR POC Glucose Random Glucose Calcium Total Bilirubin AST ALT Alkaline Phosphatase B-Natriuretic Peptide 51 Total Protein Albumin Urine Color Urine Appearance Urine pH Ur Specific Sterling Urine Protein Urine Glucose (UA) Urine Ketones Urine Blood Urine Nitrite Ur Leukocyte Esterase Urine RBC Urine WBC Ur Squamous Epith Cells Urine Bacteria Hyaline Casts Granular Casts Urine Opiates Screen Urine Fentanyl Screen Ur Barbiturates Screen Ur Phencyclidine Scrn Ur Amphetamines Screen U Benzodiazepines Scrn Urine Cocaine Screen U Marijuana (THC) Screen COVID-19 (MARYBETH) COVID-[address] scan - head: Radiologist's impression: ITS Impressions Chest X-Ray 04/04/22 12:17 IMPRESSION: 1. Endotracheal tube at the level the anna marie pointing into the right mainstem bronchus. Readjustment is recommended. 2. No acute cardiopulmonary process. Chest X-Ray 04/04/22 13:10 IMPRESSION: Satisfactory position of endotracheal and nasogastric tubes. Head CT 04/04/22 19:01 IMPRESSION: 1. Findings highly suspicious for infiltrative mass in the posterior fossa/cerebellum primarily in the midline and in the left cerebellar hemisphere with resultant effacement of the fourth ventricle, basilar cisterns, and obstructive hydrocephalus with mild transependymal CSF flow. Recommendation for emergent neurosurgical consultation. 2. Small curvilinear high density focus in the ventral left aspect of the cerebellum, possibly a small amount of hemorrhage. This critical result was discussed with Marta Briceño NP at 7:21 PM on 08/03/2021 and it was ascertained that the content and urgency of the report was understood at the time of direct communication. Chest CTA 04/04/22 19:04 IMPRESSION: 1. 3 small pulmonary emboli in the right lower lobe. No evidence of right heart failure. 2. Near complete consolidation/collapse of the left lung with shift of the mediastinum to the left. 3. Diffuse groundglass changes in the right lung with multiple focal ill-defined opacities. Findings are nonspecific, but most likely related to infectious etiology. VTE: positive. This critical result was discussed with LESLIE Barton at 7:40 PM on the evening of the exam and it was ascertained that the content and urgency of the report was understood at the time of direct communication. Discharge Plan Discharge Anticipated Discharge Date/Time: 04/05/22 22:27 Patient Disposition: er Acute Care Hospital Discharge Diagnosis: erebellar mass with obstructive hydrocephalus, PEs, aspiration Referrals: Physician,Unknown J [Primary Care Provider] - 1 Week Discharge Medications: No Action No Known Home Meds Discharge Orders: Discharge Order (Routine); Ordered 04/04/22 Ordered By: Marta Barton Activity on Discharge: bed bound/ intubated Stand Alone Forms: Patient Portal Discharge page Care Plan Goals: Transfer to neuro ICU Health Concerns: Cerebellar mass with obstructive hydrocephalus Plan of Treatment: Transfer to higher level of care Assessment: as previously stated
[2022-04-04 22:15] LABS: Troponin-I High Sensitivity 257.7 ng/L (<3.5-35.0)
[2022-04-04] MEDS: MannitoL 12.5 GM/50 ML VIAL IV (22:49)
--- NOTE | 2022-04-04 23:37 | W.PM.CCHP ---
Procedures Date of Service Date of Service: 04/04/22 Central Line Placement Right IJ: Central Line Comments: Emergent right IJ TLC placed for infusion of 3% saline. Central line placed Right internal jugular triple lumen central venous catheter placed in usual sterile conditions under ultrasound guidance for appropriate vascular access without immediate complications. Central line position verified with Chest XRAY. ? Consent for Procedure: Emergent-no informed consent obtained Time out performed: Yes Sterile Technique Used: Yes Patient placed on monitor/pulse ox: Yes prep: mask, gown and gloves Central line prep: Chlorhexidine scrub Central line lumen inserted: triple Post procedure: sutured in place, good blood return, all ports aspirated, flushed, capped and sterile dressing applied Post procedure x-ray: tip of catheter in good position and no pneumothorax seen Patient tolerated procedure: well and no complications Complications: none
[2022-04-04] MEDS: cefEPime HCl 1 GM in 0.9 % Sodium Chloride 50 ML IV (23:41)
[2022-04-05] MEDS: vancomycin HCL 1,000 MG in 0.9 % Sodium Chloride 250 ML 250 MG IV (00:04)
[2022-04-05 00:30] VITALS: BP 1676/10
[2022-04-05 00:38] VITALS: BP 174/118; PULSE 92; RESP 16
[2022-04-05 01:00] VITALS: O2SAT 97
[2022-04-05] MEDS: Labetalol HCL 100 MG/20 ML VIAL 10 MG IVPUSH (01:25)
--- NOTE | 2022-04-05 04:08 | PC.NURSE ---
CARE ASSUMED 23:15..REMAINED TUBED/VENTED....ON NO SEDATION...UNRESPONSIVE...EXTREMETIES FLACCID...NO GAG/COUGH REFLEXES...PUPILS 7MM AND NON-REACTIVE...NSR..NO ECTOPY...VASOPRESSIN 0.08 UNITS/MIN AT HS...ICU AD[employer]ION [employer] PLACED TLC TO RIGHT JUGULAR....PER [facility] NEUROSURGERY...MANNITOL 50GRAMS INFUSED...3% NS 250 ML INFUSED AFTERWARDS...OSMOTIC DIURESIS POST-INFUSION...REPORT CALLED TO DUSTIN AT [facility]..TO TRANSFER TO ROOM 52...BP ELEVATED TO 170'S-180'S...VASOPRESSIN WEANED OFF....STARTED NICARDIPINE DRIP AND TITRATED TO 7.5 MG/HR..LABETOLOL 10 MG IV X1..CARDENE TO 5 MG/HR...LIFE FLIGHT PRESENT AND TRANSPORTED APPROX 2AM....
[2022-04-05 04:43] LABS: Venous Blood Gas Refer to POC result
== END 2022-04-05 02:00 | disposition short-term general hospital (02) | DRG 812 ==
LOC: HO.ED 12:19 → HO.EDOVER 13:02 → HO.ICU 14:28
PROVIDERS: Registered Nurse Community Health; Admitting Provider Internal Medicine Cardiovascular Disease; Emergency Provider Emergency Medicine; Visit Provider Internal Medicine Cardiovascular Disease
DX: T50.901A Poisoning by unspecified drugs, medicaments and biological substances, accidental (unintentional), initial encounter (principal); J96.01 Acute respiratory failure with hypoxia; I26.09 Other pulmonary embolism with acute cor pulmonale; I95.9 Hypotension, unspecified; G91.1 Obstructive hydrocephalus; J98.11 Atelectasis; F14.10 Cocaine abuse, uncomplicated; Z20.822 Contact with and (suspected) exposure to COVID-19
CPT/HCPCS: 36415; 70450; 71045; 71275; 80048; 80053; 80307; 81001; 82803; 82947; 83880; 84484; 85025; 87040; 87635; 93005; 94002; 99284; C1758; J0330; J0692; J2150; J2185; J2250; J3010; J3101; J3370; J7131; Q9967